=== PATIENT | female | born 1960 | race Caucasian/White ===

== ENCOUNTER 2024-09-22 18:43 | Observation (INO) ==
[2024-09-22] MEDS ORDERED: IOPAMIDOL 100 ML BOTTLE IV ONE (18:44)
[2024-09-22] MEDS: ONDANSETRON 4 MG/2 ML VIAL IV ONE (19:34)
[2024-09-22] MEDS: 0.9 % SODIUM CHLORIDE 1,000 ML IV ONE (19:34)
[2024-09-22 19:44] LABS: Basophils # (Auto) 0.01 K/mcL (0.00-0.30); Basophils % (Auto) 0.1 % (0.0-2.0); Eosinophils # (Auto) 0 K/mcL (0.00-0.70); Eosinophils % (Auto) 0 % (0.0-7.0); Hematocrit 45.0 % (34.1-44.9); Hemoglobin 15.0 g/dL (11.2-15.7); Lymphocytes # (Auto) 1.64 K/mcL (1.50-4.80); Lymphocytes % (Auto) 10.1 % (15.5-49.0); Mean Corpuscular HGB Conc 33.3 g/dL (31.0-36.0); Monocytes # (Auto) 1.32 K/mcL (0.10-0.90); Monocytes % (Auto) 8.1 % (1.0-12.0); Neutrophils % (Auto) 81.5 % (38.0-78.0); Platelet Count 259 K/mcL (140-440); RBC 5.18 M/mcL (3.59-5.38); WBC 16.3 K/mcL (4.5-11.0)
[2024-09-22 19:56] LABS: ALT/SGPT 11 U/L (<40); AST/SGOT 10 U/L (<32); Albumin 3.8 gm/dL (3.2-5.2); Albumin/Globulin Ratio 2.4 (1.0-2.3); Alkaline Phosphatase 96 U/L (39-117); Anion Gap 14.0 (8.0-16.0); Bilirubin,Total 0.9 mg/dL (0.1-1.0); Blood Urea Nitrogen 10 mg/dL (8-23); Calcium 9.3 mg/dL (8.6-10.4); Carbon Dioxide 20 mmol/L (22-30); Chloride 107 mmol/L (96-108); Globulin 1.6 gm/dL (2.2-3.7); Glucose 119 mg/dL (70-105); Potassium 3.8 mmol/L (3.3-5.1); Sodium 141 mmol/L (133-145)
[2024-09-22] MEDS: cefTRIAXone 2 GM in DEXTROSE 5% IN WATER 50 ML IV ONE (20:48)
[2024-09-22] MEDS: metroNIDAZOLE 500 MG/100 ML BAG IV ONE (21:02)
[2024-09-22] MEDS ORDERED: ONDANSETRON 4 MG/2 ML VIAL IV PRN (21:50)
[2024-09-22] MEDS: metroNIDAZOLE 500 MG/100 ML BAG IV SCH (22:08)
[2024-09-22] MEDS: DEXTROSE 5%-LR 1,000 ML IV SCH (22:15)
[2024-09-22] MEDS: CIPROFLOXACIN 400 MG/200 ML BAG IV SCH (22:24)
[2024-09-23] MEDS: ACETAMINOPHEN 1,000 MG/100 ML BAG IV PRN (06:36)
[2024-09-23 07:13] LABS: Hematocrit 37.9 % (34.1-44.9); Hemoglobin 12.8 g/dL (11.2-15.7); Mean Corpuscular HGB Conc 33.8 g/dL (31.0-36.0); Platelet Count 234 K/mcL (140-440); RBC 4.36 M/mcL (3.59-5.38); WBC 13.2 K/mcL (4.5-11.0)
[2024-09-23 07:38] LABS: Anion Gap 9.0 (8.0-16.0); Blood Urea Nitrogen 8 mg/dL (8-23); Calcium 8.3 mg/dL (8.6-10.4); Carbon Dioxide 23 mmol/L (22-30); Chloride 108 mmol/L (96-108); Glucose 131 mg/dL (70-105); Potassium 3.9 mmol/L (3.3-5.1); Sodium 140 mmol/L (133-145)
[2024-09-23] MEDS ORDERED: LIDOCAINE 2% PF 5 ML VIAL ONE (11:13)
[2024-09-23] MEDS ORDERED: ROCURONIUM 10 MG/ML ML IV ONE (11:13)
[2024-09-23] MEDS ORDERED: PROPOFOL 200 MG/20 ML VIAL IV ONE (11:13)
[2024-09-23] MEDS ORDERED: fentaNYL 100 MCG/2 ML VIAL ONE ×2 (11:13→13:00)
[2024-09-23] MEDS ORDERED: ONDANSETRON 4 MG/2 ML VIAL ONE (11:13)
[2024-09-23] MEDS ORDERED: DEXAMETHASONE 10 MG/ML VIAL ONE (11:13)
[2024-09-23] MEDS ORDERED: PHENYLephrine 1 MG/10 ML SYRINGE (ANEST) ONE (11:34)
[2024-09-23] MEDS ORDERED: IPRATROPIUM/ALBUTEROL 3 ML AMPUL.NEB NEB PRN (12:29)
[2024-09-23] MEDS ORDERED: diphenhydrAMINE 50 MG/ML VIAL IV PRN (12:29)
[2024-09-23] MEDS ORDERED: MEPERIDINE 25 MG/ML VIAL IV PRN (12:29)
[2024-09-23] MEDS ORDERED: NALOXONE HCL 0.4 MG/ML VIAL IV PRN (12:29)
[2024-09-23] MEDS ORDERED: fentaNYL 100 MCG/2 ML VIAL IV PRN (12:29)
[2024-09-23] MEDS ORDERED: LACTATED RINGERS 250 ML IV PRN (12:29)
[2024-09-23] MEDS ORDERED: ONDANSETRON 4 MG/2 ML VIAL IV PRN (12:29)
[2024-09-23] MEDS ORDERED: LACTATED RINGERS 1,000 ML IV SCH (12:30)
[2024-09-23] MEDS ORDERED: SUGAMMADEX SODIUM 200 MG/2 ML VIAL IV ONE (12:43)
[2024-09-23] MEDS: BUPIVACAINE W/EPI 0.25% 50 ML VIAL IJ ONE (12:48)
[2024-09-23] MEDS: METHOCARBAMOL 1,000 MG/10 ML VIAL IV PRN (13:42)
[2024-09-23] MEDS: HYDROmorphone 0.5 MG/0.5 ML SYRINGE IV PRN (14:33)
[2024-09-23] MEDS: Progesterone Micronized 200 mg capsule PO SCH (19:50)
[2024-09-24] MEDS: ESTRADIOL 1 MG TABLET PO SCH (09:52)
[2024-09-24] MEDS: ACETAMINOPHEN 500 MG TABLET PO PRN (10:59)
[2024-09-24] MEDS: DEXTROSE 5%-LR 1,000 ML IV SCH (16:11)
== END 2024-09-24 16:57 | disposition home or self-care (01) ==
LOC: MEDSUR 18:43 → ED 18:43 → MEDSUR 22:12
PROVIDERS: ADMIT Surgery Surgical Critical Care; ATTEND Surgery Surgical Critical Care
PROC: LAPAPPY (ICD-10-PCS; 2024-09-23 11:25)